=== PATIENT | male | born 2000 | race Caucasian/White ===

== ENCOUNTER 2019-04-03 07:30 | Outpatient (CLI) | payer OTHER ==
[2019-04-03 09:02] LABS: HDL 31 mg/dL (>40); eGFR (Non-African) > 60
== END 2019-04-03 07:35 ==
LOC: LAB 07:30
PROVIDERS: ATTEND Family Medicine
DX: Z13.220 Encounter for screening for lipoid disorders (principal); Z13.29 Encounter for screening for other suspected endocrine disorder
CPT/HCPCS: 36415; 80053; 80061; 84443